=== PATIENT | male | born 1950 | race Caucasian/White ===

== ENCOUNTER 2019-04-17 09:39 | Day surgery (SDC) | payer BC, MEDICARE ==
[~2019-04-17] VITALS: Ht 175.3 cm; Wt 99.8 kg
[~2019-04-17 09:39] MED LIST: ASPI-1197 PO; ATOR40TA69 PO; BUPR200T PO; LANS15CA12 PO; LISINOPRIL PO; METO50TA18 PO; SODIUM CHLORIDE 0.9% 1000ML 1,000 ML IV ONE
[2019-04-17 10:33] VITALS: BP 177/87
[2019-04-17] MEDS ORDERED: CLOP75TA32 PO (10:46)
[2019-04-17] MEDS ORDERED: LIDOCAINE HCL-MPF 2% 5ML VIAL ONE (11:39)
[2019-04-17] MEDS ORDERED: PROPOFOL 10 MG/ML 20ML VIAL IV ONE (11:39)
[2019-04-17 12:06] VITALS: BP 86/42
[2019-04-17 12:10] VITALS: BP 104/49
[2019-04-17 12:41] VITALS: BP 145/76
== END 2019-04-17 12:49 | disposition home or self-care (01) ==
LOC: ENDO 09:39 → DAH 09:39 → ENDO 12:49
PROVIDERS: ATTEND Internal Medicine Gastroenterology
DX: Z12.11 Encounter for screening for malignant neoplasm of colon (principal); D12.2 Benign neoplasm of ascending colon; D12.0 Benign neoplasm of cecum; D12.3 Benign neoplasm of transverse colon; D12.4 Benign neoplasm of descending colon; D3A.8 Other benign neuroendocrine tumors; K29.50 Unspecified chronic gastritis without bleeding; K21.9 Gastro-esophageal reflux disease without esophagitis; K44.9 Diaphragmatic hernia without obstruction or gangrene; K64.1 Second degree hemorrhoids; K57.30 Diverticulosis of large intestine without perforation or abscess without bleeding; E66.9 Obesity, unspecified; E78.5 Hyperlipidemia, unspecified; I10 Essential (primary) hypertension; I73.9 Peripheral vascular disease, unspecified; I25.10 Atherosclerotic heart disease of native coronary artery without angina pectoris; Z68.32 Body mass index [BMI] 32.0-32.9, adult; Z96.642 Presence of left artificial hip joint; Z86.010 Personal history of colon polyps; Z79.899 Other long term (current) drug therapy; Z98.890 Other specified postprocedural states; Z72.89 Other problems related to lifestyle; Z87.891 Personal history of nicotine dependence; Z79.82 Long term (current) use of aspirin; Z82.49 Family history of ischemic heart disease and other diseases of the circulatory system
CPT/HCPCS: 43239; 45380; 45385; 88305; A4215; A4221; A4222; A4223; A4606; A4615; A4663; J2704; J3490; J7030

== ENCOUNTER → 2019-07-11 | Outpatient (CLI) | payer OTHER, MEDICARE ==
[~2019-07-11] MED LIST changes: +CLOP75TA32 PO; -SODIUM CHLORIDE 0.9% 1000ML 1,000 ML IV ONE
== END | disposition home or self-care (01) ==
LOC: SHCH 07:39
PROVIDERS: ATTEND Internal Medicine Cardiovascular Disease
DX: I70.203 Unspecified atherosclerosis of native arteries of extremities, bilateral legs (principal); I70.0 Atherosclerosis of aorta; I70.8 Atherosclerosis of other arteries
CPT/HCPCS: 93925; 93978

== ENCOUNTER 2020-12-19 07:38 | Day surgery (SDC) | payer OTHER, MEDICARE ==
[2020-12-16 12:04] LABS: BASOPHILS % (AUTO) 0.9 % (0.0-5.0); EOSINOPHILS % (AUTO) 4.4 % (0.0-8.0); HEMATOCRIT 41.1 % (42-54); LYMPHOCYTES % (AUTO) 22.1 % (21.0-51.0); MEAN CORPUSCULAR HEMOGLOBIN 29.8 pg (27.0-33.0); MEAN CORPUSCULAR HGB CONC 33.3 g/dL (32.0-36.0); MEAN CORPUSCULAR VOLUME 89.3 fL (79-99); MONOCYTES % (AUTO) 8.5 % (3.0-13.0); NEUTROPHILS % (AUTO) 63.7 % (40.0-77.0); PLATELET COUNT (AUTO) 236 K/uL (130-400); RED CELL DISTRIBUTION WIDTH 13.5 % (11.0-15.5); WHITE BLOOD COUNT (AUTO) 11.2 K/uL (4.8-10.8)
[2020-12-16 12:14] LABS: APPEARANCE,URINE Clear (CLEAR); BILIRUBIN,URINE Negative (NEGATIVE); COLOR,URINE Dark Yellow (YELLOW); GLUCOSE, URINE (UA) Negative (NEGATIVE); KETONES,URINE Negative (NEGATIVE); LEUKOCYTE ESTERASE ,URINE Negative (NEGATIVE); NITRATE,URINE Negative (NEGATIVE); OCCULT BLOOD,URINE Negative (NEGATIVE); PROTEIN,URINE Negative (NEGATIVE)
[2020-12-16 12:15] LABS: CREATININE 1.1 mg/dL (0.5-1.5)
[2020-12-16 12:18] LABS: INR 1.02 (0.85-1.15); PROTHROMBIN TIME 11.1 SEC (9.6-11.6)
[2020-12-16 12:19] LABS: PARTIAL THROMBOPLASTIN TIME 25.2 SEC (26.3-35.5)
[2020-12-16 12:47] LABS: BACTERIA,URINE Rare /HPF (None Seen); MUCUS,URINE Many LPF (None Seen); RBC,URINE 0-1 /HPF (0-1); SQUAMOUS EPITHELIAL CELL,UR Few /HPF (0-2); WBC,URINE 0-1 /HPF (0-1)
[2020-12-18 13:42] VITALS: BP 177/86
[2020-12-19] VITALS (10 sets, daily range): BP systolic 129–161; BP diastolic 68–91
[~2020-12-19] VITALS: Ht 175.3 cm; Wt 90.1 kg
[~2020-12-19 07:38] MED LIST changes: +BUPR-317 PO; -BUPR200T PO; +FEXO180T94 PO; +IBUP200C5 PO; +LISI40TA9 PO; -LISINOPRIL PO; +METO-391 PO; -METO50TA18 PO
[2020-12-19] MEDS ORDERED: NACL 0.9% 1000ML 1,000 ML IV SCH ×2 (08:00→13:15)
[2020-12-19] MEDS ORDERED: ACET1TAB25 PO (08:38)
[2020-12-19] MEDS ORDERED: HEPARIN 10,000 UNIT/10ML (1,000 UNIT/ML) VIAL ONE (10:52)
[2020-12-19] MEDS ORDERED: IODIXANOL 320 MG/ML 100 ML VIAL ONE (10:53)
[2020-12-19] MEDS ORDERED: LIDOCAINE HCL 400MG/20ML VIAL ONE (10:53)
[2020-12-19] MEDS ORDERED: MIDAZOLAM HCL 1 MG/ML 2ML VIAL ONE ×2 (10:53→12:28)
[2020-12-19] MEDS ORDERED: FENTANYL CITRATE PF 50 MCG/1 ML 2ML VIAL ONE (10:53)
[2020-12-19] MEDS ORDERED: NITROGLYCERIN 2 MG VIAL IV ONE (10:53)
[2020-12-19] MEDS ORDERED: PROTAMINE SULFATE 10 MG/ML 25ML VIAL IV ONE (13:08)
[2020-12-19] MEDS ORDERED: DEXTROSE 50%-WATER 50 ML DISP.SYRIN IV PRN (13:15)
[2020-12-19] MEDS ORDERED: NITROGLYCERIN 0.4 MG SL TAB SL PRN (13:15)
[2020-12-19] MEDS ORDERED: METOPROLOL TARTRATE 1 MG/ML 5ML VIAL IV PRN (13:15)
[2020-12-19] MEDS ORDERED: GLUCAGON 1MG KIT 1 MG ML IM PRN (13:15)
== END 2020-12-19 18:05 | disposition home or self-care (01) ==
LOC: DAH 07:38
PROVIDERS: ATTEND Internal Medicine Cardiovascular Disease
DX: I70.213 Atherosclerosis of native arteries of extremities with intermittent claudication, bilateral legs (principal); I71.4 Abdominal aortic aneurysm, without rupture; I44.0 Atrioventricular block, first degree; I10 Essential (primary) hypertension; E66.9 Obesity, unspecified; E78.5 Hyperlipidemia, unspecified; I25.10 Atherosclerotic heart disease of native coronary artery without angina pectoris; Z95.1 Presence of aortocoronary bypass graft; Z79.82 Long term (current) use of aspirin; Z85.46 Personal history of malignant neoplasm of prostate; Z92.3 Personal history of irradiation; Z95.5 Presence of coronary angioplasty implant and graft; Z72.89 Other problems related to lifestyle; Z79.02 Long term (current) use of antithrombotics/antiplatelets; Z68.30 Body mass index [BMI] 30.0-30.9, adult; Z79.01 Long term (current) use of anticoagulants; Z79.1 Long term (current) use of non-steroidal anti-inflammatories (NSAID)
CPT/HCPCS: 36415; 37224; 75630; 75774; 80048; 81001; 85025; 85610; 85730; 93005; A4215; A4216; A4221; A4222; A4223 ×3; A4606; A4663; C1769; C1887; C1893; C1894 ×2; C2623; J1644 ×2; J2250 ×2; J2720; J3010; J3490 ×2; J7030; Q9967; 96360; 96361; 99156; 99157

== ENCOUNTER → 2021-01-08 | Outpatient (CLI) | payer OTHER, MEDICARE ==
[~2021-01-08] MED LIST changes: +ACET1TAB25 PO; +IOHEXOL 350 MG/ML 100ML INFUS..BTL IV ONE; -LANS15CA12 PO; +LANS15CA13 PO
== END | disposition home or self-care (01) ==
LOC: RAH 10:05
PROVIDERS: ATTEND Internal Medicine Critical Care Medicine
DX: I71.4 Abdominal aortic aneurysm, without rupture (principal); I70.0 Atherosclerosis of aorta; I70.8 Atherosclerosis of other arteries
CPT/HCPCS: 74174; Q9967

== ENCOUNTER → 2021-01-27 | Outpatient (CLI) | payer OTHER, MEDICARE ==
[~2021-01-27] MED LIST changes: -IOHEXOL 350 MG/ML 100ML INFUS..BTL IV ONE; +REGADENOSON 0.4 MG/5 ML PF SYG IVP SCH
== END | disposition home or self-care (01) ==
LOC: SHCH 08:48
PROVIDERS: ATTEND Internal Medicine Cardiovascular Disease
DX: I25.10 Atherosclerotic heart disease of native coronary artery without angina pectoris (principal)
CPT/HCPCS: 78452; 93017; 96374; A9500 ×2; J2785

== ENCOUNTER 2021-04-10 13:06 | Inpatient (IN) | payer OTHER, MEDICARE ==
[~2021-04-10] VITALS: Ht 175.3 cm; Wt 88.0 kg
[~2021-04-10 13:06] MED LIST changes: -REGADENOSON 0.4 MG/5 ML PF SYG IVP SCH
[2021-04-10 13:55] LABS: BASOPHILS % (AUTO) 0.6 % (0.0-5.0); EOSINOPHILS % (AUTO) 1.6 % (0.0-8.0); LYMPHOCYTES % (AUTO) 11.9 % (21.0-51.0); MEAN CORPUSCULAR HEMOGLOBIN 30.5 pg (27.0-33.0); MEAN CORPUSCULAR HGB CONC 34.5 g/dL (32.0-36.0); MEAN CORPUSCULAR VOLUME 88.4 fL (79-99); MONOCYTES % (AUTO) 7.7 % (3.0-13.0); NEUTROPHILS % (AUTO) 77.1 % (40.0-77.0); PLATELET COUNT (AUTO) 259 K/uL (130-400); RED BLOOD CELL COUNT(AUTO) 4.75 MIL/uL (4.50-6.20); RED CELL DISTRIBUTION WIDTH 12.9 % (11.0-15.5)
[2021-04-10 14:11] LABS: CREATININE 1.7 mg/dL (0.5-1.5); POTASSIUM 5.2 mmol/L (3.5-5.1)
[2021-04-10 14:21] LABS: ALBUMIN 4.1 g/dL (3.5-5.0); BILIRUBIN,TOTAL 0.8 mg/dL (0.2-1.0); TOTAL PROTEIN, SERUM 8.1 g/dL (6.0-8.3)
[2021-04-10] MEDS ORDERED: KAYEXALATE 15GM/60ML PO ONE (14:30)
[2021-04-10] MEDS ORDERED: CEFTRIAXONE 1G VIAL IVP SCH (14:30)
[2021-04-10] MEDS ORDERED: AZITHROMYCIN 250 MG TABLET PO SCH (14:30)
[2021-04-10 14:46] LABS: APPEARANCE,URINE Clear (CLEAR); BILIRUBIN,URINE Negative (NEGATIVE); COLOR,URINE Yellow (YELLOW); GLUCOSE, URINE (UA) Negative (NEGATIVE); KETONES,URINE Negative (NEGATIVE); LEUKOCYTE ESTERASE ,URINE Negative (NEGATIVE); NITRATE,URINE Negative (NEGATIVE); OCCULT BLOOD,URINE Negative (NEGATIVE); PROTEIN,URINE Negative (NEGATIVE); UROBILINOGEN,URINE 0.2 mg/dL (0.2-1.0)
[2021-04-10] MEDS ORDERED: KAYEXALATE 15GM/60ML ONE (15:38)
[2021-04-10] MEDS ORDERED: NITROGLYCERIN 1GM OINT 1 INCH/1GM TD ONE (15:38)
[2021-04-10] MEDS: NITROGLYCERIN 1GM OINT 1 INCH/1GM TD ONE ×2 (15:39→16:02)
[2021-04-10] MEDS ORDERED: MORPHINE 4 MG SYG IV PRN (16:00)
[2021-04-10] MEDS ORDERED: ACETAMINOPHEN WITH CODEINE 1 TAB TAB PO PRN (16:00)
[2021-04-10] MEDS ORDERED: ONDANSETRON 4MG INJ IV PRN (16:00)
[2021-04-10] MEDS ORDERED: ACETAMINOPHEN 325 MG TAB PO PRN (16:00)
[2021-04-10] MEDS ORDERED: 0.9%NACL 1000ML 1,000 ML IV SCH (16:00)
[2021-04-10 16:27] LABS: AMPHET/METH SCREEN,URINE NEGATIVE (NEGATIVE); BARBITURATE SCREEN, URINE NEGATIVE (NEGATIVE); BENZODIAZEPINES SCREEN,URINE NEGATIVE (NEGATIVE); CANNABINOID SCREEN,URINE NEGATIVE (NEGATIVE); COCAINE SCREEN,URINE NEGATIVE (NEGATIVE); OPIATE SCREEN,URINE NEGATIVE (NEGATIVE); PHENCYCLIDINE SCREEN,URINE NEGATIVE (NEGATIVE)
[2021-04-10 17:01] LABS: INR 1.08 (0.85-1.15); PROTHROMBIN TIME 11.7 SEC (9.6-11.6)
[2021-04-10 19:55] VITALS: BP 153/75
[2021-04-10] MEDS ORDERED: FAMOTIDINE 20MG TAB PO SCH (21:00)
[2021-04-10] MEDS ORDERED: HEPARIN 5,000 UNIT VIAL ONE (21:08)
[2021-04-10] MEDS: HEPARIN 25,000 UNITS/250ML D5W 250 ML IV SCH (22:00)
[2021-04-11] VITALS (7 sets, daily range): BP systolic 116–136; BP diastolic 67–79
[2021-04-11 03:40] LABS: BASOPHILS % (AUTO) 0.9 % (0.0-5.0); EOSINOPHILS % (AUTO) 4.5 % (0.0-8.0); HEMATOCRIT 37.5 % (42-54); LYMPHOCYTES % (AUTO) 24.8 % (21.0-51.0); MEAN CORPUSCULAR HEMOGLOBIN 30.2 pg (27.0-33.0); MEAN CORPUSCULAR HGB CONC 34.4 g/dL (32.0-36.0); MEAN CORPUSCULAR VOLUME 87.8 fL (79-99); MONOCYTES % (AUTO) 8.9 % (3.0-13.0); NEUTROPHILS % (AUTO) 60.3 % (40.0-77.0); PLATELET COUNT (AUTO) 203 K/uL (130-400); RED BLOOD CELL COUNT(AUTO) 4.27 MIL/uL (4.50-6.20); RED CELL DISTRIBUTION WIDTH 12.8 % (11.0-15.5); WHITE BLOOD COUNT (AUTO) 13.7 K/uL (4.8-10.8)
[2021-04-11 05:17] LABS: INR 1.08 (0.85-1.15); PROTHROMBIN TIME 11.7 SEC (9.6-11.6)
[2021-04-11 05:21] LABS: PARTIAL THROMBOPLASTIN TIME 91.7 SEC (26.3-35.5)
[2021-04-11] MEDS ORDERED: ASPI-1197 PO (10:28)
[2021-04-11] MEDS ORDERED: TRAM50TA4 PO (10:28)
[2021-04-11] MEDS ORDERED: AMLO-258 PO (10:28)
[2021-04-11] MEDS ORDERED: MULT-1289 PO (10:28)
[2021-04-11] MEDS ORDERED: LANS15CA14 PO (10:32)
[2021-04-11] MEDS ORDERED: CART1TAB5 PO (10:32)
[2021-04-11] MEDS ORDERED: AZITHROMYCIN 500MG VIAL IVPB SCH (12:00)
[2021-04-11] MEDS: 0.9% NACL 250ML IVPB SCH (12:00)
[2021-04-11] MEDS ORDERED: CEFTRIAXONE 1G VIAL IV SCH (13:00)
[2021-04-11 13:06] LABS: INR 1.13 (0.85-1.15); PROTHROMBIN TIME 12.2 SEC (9.6-11.6)
[2021-04-11 13:07] LABS: PARTIAL THROMBOPLASTIN TIME 72.6 SEC (26.3-35.5)
[2021-04-11] MEDS: PANTOPRAZOLE 40 MG TAB DR PO SCH (17:39)
[2021-04-11] MEDS: HEPARIN 25,000 UNITS/250ML D5W 250 ML IV SCH (18:10)
[2021-04-11] MEDS: LISINOPRIL 10 MG TABLET PO SCH (18:10)
[2021-04-11] MEDS: ACETAMINOPHEN 325 MG TAB PO PRN (19:34)
[2021-04-11] MEDS: ATORVASTATIN 40 MG TABLET PO SCH (20:02)
[2021-04-11 23:46] LABS: APPEARANCE,URINE Clear (CLEAR); BILIRUBIN,URINE Negative (NEGATIVE); COLOR,URINE Yellow (YELLOW); GLUCOSE, URINE (UA) Negative (NEGATIVE); KETONES,URINE Negative (NEGATIVE); LEUKOCYTE ESTERASE ,URINE Negative (NEGATIVE); NITRATE,URINE Negative (NEGATIVE); OCCULT BLOOD,URINE Negative (NEGATIVE); PH,URINE 5.5 (5.0-8.0); PROTEIN,URINE Negative (NEGATIVE); UROBILINOGEN,URINE 0.2 mg/dL (0.2-1.0)
[2021-04-12 00:59] LABS: INR 1.08 (0.85-1.15); PROTHROMBIN TIME 11.7 SEC (9.6-11.6)
[2021-04-12 01:01] LABS: PARTIAL THROMBOPLASTIN TIME 56.5 SEC (26.3-35.5)
[2021-04-12] MEDS: ACETAMINOPHEN 325 MG TAB PO PRN ×2 (03:40→21:00)
[2021-04-12 04:01] VITALS: BP 102/64
[2021-04-12 05:19] LABS: HEMATOCRIT 38.4 % (42-54); MEAN CORPUSCULAR HEMOGLOBIN 31.2 pg (27.0-33.0); MEAN CORPUSCULAR HGB CONC 34.6 g/dL (32.0-36.0); MEAN CORPUSCULAR VOLUME 90.1 fL (79-99); PLATELET COUNT (AUTO) 190 K/uL (130-400); RED BLOOD CELL COUNT(AUTO) 4.26 MIL/uL (4.50-6.20); WHITE BLOOD COUNT (AUTO) 11.1 K/uL (4.8-10.8)
[2021-04-12 05:56] LABS: CREATININE 1.1 mg/dL (0.5-1.5); PHOSPHORUS 3.3 mg/dL (2.5-4.9); POTASSIUM 4.2 mmol/L (3.5-5.1); THYROID STIMULATING HORMONE 0.71 uIU/mL (0.36-3.74); URIC ACID 4.7 mg/dL (2.6-7.2)
[2021-04-12 05:58] LABS: BASOPHILS % (MANUAL) 5 % (0-2); EOSINOPHILS % (MANUAL) 4 % (1-6); LYMPHOCYTES % (MANUAL) 27 % (22-44); MAN.DIFF COMMENT-IMPRESSION MANUAL DIFFERENTIAL; MONOCYTES % (MANUAL) 6 % (2-9); PLATELET MORPHOLOGY COMMENT ADEQUATE; SEGMENTED NEUTROPHILS % 58 % (40-70)
[2021-04-12] MEDS: PANTOPRAZOLE 40 MG TAB DR PO SCH ×2 (06:30→09:03)
[2021-04-12 08:00] VITALS: BP 116/77
[2021-04-12] MEDS ORDERED: ASPIRIN 81 MG EC TAB PO SCH (09:00)
[2021-04-12] MEDS: APIXABAN 5 MG TABLET PO SCH ×2 (09:02→19:59)
[2021-04-12] MEDS: Vitamin B Complex/Vit C/Folic Acid PO SCH (09:02)
[2021-04-12] MEDS: CLOPIDOGREL 75MG TAB PO SCH (09:03)
[2021-04-12] MEDS: METOPROLOL SUCCINATE 50 MG TAB.SR.24H PO SCH (09:03)
[2021-04-12] MEDS: LISINOPRIL 10 MG TABLET PO SCH (09:03)
[2021-04-12 11:50] VITALS: BP 115/87
[2021-04-12] MEDS: 0.9% NACL 250ML IVPB SCH (12:00)
[2021-04-12 16:00] VITALS: BP 114/74
[2021-04-12] MEDS: ATORVASTATIN 40 MG TABLET PO SCH (19:59)
[2021-04-12 20:14] VITALS: BP 129/86
[2021-04-12 23:47] VITALS: BP 118/73
[2021-04-13 03:29] VITALS: BP 145/87
[2021-04-13 06:02] LABS: BASOPHILS % (AUTO) 0.8 % (0.0-5.0); EOSINOPHILS % (AUTO) 5.7 % (0.0-8.0); LYMPHOCYTES % (AUTO) 21.2 % (21.0-51.0); MEAN CORPUSCULAR HEMOGLOBIN 30.6 pg (27.0-33.0); MEAN CORPUSCULAR HGB CONC 33.5 g/dL (32.0-36.0); MEAN CORPUSCULAR VOLUME 91.3 fL (79-99); MONOCYTES % (AUTO) 10.4 % (3.0-13.0); NEUTROPHILS % (AUTO) 61.5 % (40.0-77.0); PLATELET COUNT (AUTO) 204 K/uL (130-400); RED BLOOD CELL COUNT(AUTO) 4.38 MIL/uL (4.50-6.20); RED CELL DISTRIBUTION WIDTH 13.1 % (11.0-15.5); WHITE BLOOD COUNT (AUTO) 11.1 K/uL (4.8-10.8)
[2021-04-13 06:14] LABS: INR 1.12 (0.85-1.15); PROTHROMBIN TIME 12.1 SEC (9.6-11.6)
[2021-04-13 06:15] LABS: PARTIAL THROMBOPLASTIN TIME 31.5 SEC (26.3-35.5)
[2021-04-13 06:26] LABS: CREATININE 1.2 mg/dL (0.5-1.5); POTASSIUM 4.2 mmol/L (3.5-5.1)
[2021-04-13] MEDS ORDERED: APIX5TAB PO (07:56)
[2021-04-13 08:00] VITALS: BP 128/86
[2021-04-13] MEDS: METOPROLOL SUCCINATE 50 MG TAB.SR.24H PO SCH (08:27)
[2021-04-13] MEDS: Vitamin B Complex/Vit C/Folic Acid PO SCH (08:30)
[2021-04-13] MEDS: APIXABAN 5 MG TABLET PO SCH (08:30)
[2021-04-13] MEDS: CLOPIDOGREL 75MG TAB PO SCH (08:31)
[2021-04-13] MEDS: LISINOPRIL 10 MG TABLET PO SCH (08:31)
[2021-04-13 12:00] VITALS: BP 159/92
[2021-04-13] MEDS ORDERED: AMLODIPINE 5 MG TAB PO ONE (13:00)
== END 2021-04-13 12:41 | disposition home or self-care (01) | DRG 280 ==
LOC: EDH 13:06 → EDHIP 15:38 → 4AH 20:13
PROVIDERS: ADMIT Internal Medicine; ATTEND Internal Medicine
DX: I82.401 Acute embolism and thrombosis of unspecified deep veins of right lower extremity (principal); I26.99 Other pulmonary embolism without acute cor pulmonale; I21.A1 Myocardial infarction type 2; N17.9 Acute kidney failure, unspecified; E11.22 Type 2 diabetes mellitus with diabetic chronic kidney disease; E11.51 Type 2 diabetes mellitus with diabetic peripheral angiopathy without gangrene; E78.5 Hyperlipidemia, unspecified; E78.00 Pure hypercholesterolemia, unspecified; E87.5 Hyperkalemia; I12.9 Hypertensive chronic kidney disease with stage 1 through stage 4 chronic kidney disease, or unspecified chronic kidney disease; I71.4 Abdominal aortic aneurysm, without rupture; I07.1 Rheumatic tricuspid insufficiency; I25.10 Atherosclerotic heart disease of native coronary artery without angina pectoris; I48.0 Paroxysmal atrial fibrillation; M16.11 Unilateral primary osteoarthritis, right hip; N18.9 Chronic kidney disease, unspecified; Z96.649 Presence of unspecified artificial hip joint; Z79.01 Long term (current) use of anticoagulants; Z79.02 Long term (current) use of antithrombotics/antiplatelets; Z79.899 Other long term (current) drug therapy; Z95.820 Peripheral vascular angioplasty status with implants and grafts; Z95.5 Presence of coronary angioplasty implant and graft; Z95.1 Presence of aortocoronary bypass graft; Z87.891 Personal history of nicotine dependence; Z85.46 Personal history of malignant neoplasm of prostate; Z80.3 Family history of malignant neoplasm of breast; Z82.49 Family history of ischemic heart disease and other diseases of the circulatory system; Z20.822 Contact with and (suspected) exposure to COVID-19
CPT/HCPCS: 36415; 71045; 71250; 74176; 76770; 78582; 80048; 80053; 80305; 81003; 82550; 83735; 83874; 83880; 84100; 84132; 84443; 84484; 84550; 85025; 85378; 85610; 85730; 87635; 87804; 93005; 93306; 93356; 93970; A9540; A9558; C9803; G0378; J0696; J1644; J7030

== ENCOUNTER → 2021-07-14 | Outpatient (CLI) | payer OTHER, MEDICARE ==
[~2021-07-14] MED LIST changes: -ACET1TAB25 PO; +AMLO-258 PO; +APIX5TAB PO; -ASPI-1197 PO; +CART1TAB5 PO; -FEXO180T94 PO; -IBUP200C5 PO; -LANS15CA13 PO; +LANS15CA14 PO; +MULT-1289 PO; +TRAM50TA4 PO
== END | disposition home or self-care (01) ==
LOC: RAH 12:05
PROVIDERS: ATTEND Internal Medicine Pulmonary Disease
DX: I26.99 Other pulmonary embolism without acute cor pulmonale (principal)
CPT/HCPCS: 93970

== ENCOUNTER → 2022-04-08 | Outpatient (CLI) | payer OTHER, MEDICARE | END | disposition home or self-care (01) | LOC: SHCH 14:53 | PROVIDERS: ATTEND Internal Medicine Cardiovascular Disease | DX: I73.9 Peripheral vascular disease, unspecified (principal) | CPT/HCPCS: 93925 ==

== ENCOUNTER 2022-06-11 05:32 | Day surgery (SDC) | payer OTHER, MEDICARE ==
[2022-06-09 10:50] LABS: HEMATOCRIT 31.7 % (42-54); MEAN CORPUSCULAR HEMOGLOBIN 25.2 pg (27.0-33.0); MEAN CORPUSCULAR HGB CONC 30.9 g/dL (32.0-36.0); MEAN CORPUSCULAR VOLUME 81.5 fL (79-99); PLATELET COUNT (AUTO) 222 K/uL (130-400); RED BLOOD CELL COUNT(AUTO) 3.89 MIL/uL (4.50-6.20); RED CELL DISTRIBUTION WIDTH 13.9 % (11.0-15.5); WHITE BLOOD COUNT (AUTO) 7.6 K/uL (4.8-10.8)
[2022-06-09 10:58] LABS: CREATININE 1.2 mg/dL (0.5-1.5); POTASSIUM 4.7 mmol/L (3.5-5.1)
[2022-06-09 11:00] LABS: PROTHROMBIN TIME 10.9 SEC (9.6-11.6)
[2022-06-09 11:02] LABS: PARTIAL THROMBOPLASTIN TIME 28.2 SEC (26.3-35.5)
[2022-06-09 11:22] LABS: APPEARANCE,URINE CLEAR (CLEAR); BILIRUBIN,URINE NEGATIVE (NEGATIVE); COLOR,URINE LIGHT-YELLOW (YELLOW); GLUCOSE, URINE (UA) NEGATIVE (NEGATIVE); KETONES,URINE NEGATIVE (NEGATIVE); LEUKOCYTE ESTERASE ,URINE NEGATIVE Leu/uL (NEGATIVE); NITRATE,URINE NEGATIVE (NEGATIVE); OCCULT BLOOD,URINE NEGATIVE (NEGATIVE); PROTEIN,URINE NEGATIVE (NEGATIVE); UROBILINOGEN,URINE 0.2 mg/dL (0.2-1.0)
[2022-06-09 11:50] LABS: B-TYPE NATRIURETIC PEPTIDE 155 pg/mL (0-100)
[2022-06-09 13:27] LABS: BAND NEUTROPHILS % (MANUAL) 2 % (0-2); EOSINOPHILS % (MANUAL) 2 % (1-6); LYMPHOCYTES % (MANUAL) 29 % (22-44); MONOCYTES % (MANUAL) 2 % (2-9); SEGMENTED NEUTROPHILS % 65 % (40-70)
[2022-06-09 13:28] LABS: MAN.DIFF COMMENT-IMPRESSION MANUAL DIFFERENTIAL; PLATELET MORPHOLOGY COMMENT ADEQUATE
[2022-06-10 13:14] VITALS: BP 158/75
[~2022-06-11] VITALS: Ht 175.3 cm; Wt 85.7 kg
[2022-06-11] VITALS (21 sets, daily range): BP systolic 81–161; BP diastolic 42–76
[~2022-06-11 05:32] MED LIST changes: +0.9% NACL 500ML IV.SOLN 500 ML IV SCH; -AMLO-258 PO; -CART1TAB5 PO; -CLOP75TA32 PO; +LISI20TA24 PO; -LISI40TA9 PO; -MULT-1289 PO; -TRAM50TA4 PO
[2022-06-11] MEDS ORDERED: 0.9%NACL 1000ML 1,000 ML IV ONE (06:52)
[2022-06-11] MEDS ORDERED: HEPARIN 10,000 UNIT/10ML (1,000 UNIT/ML) VIAL ONE (07:05)
[2022-06-11] MEDS ORDERED: FENTANYL CITRATE PF 50 MCG/1 ML 2ML VIAL ONE (07:06)
[2022-06-11] MEDS ORDERED: LIDOCAINE HCL 400MG/20ML VIAL ONE (07:06)
[2022-06-11] MEDS ORDERED: MIDAZOLAM HCL 1 MG/ML 2ML VIAL ONE ×2 (07:06→08:21)
[2022-06-11] MEDS ORDERED: NITROGLYCERIN 50MG VIAL ONE (07:06)
[2022-06-11] MEDS ORDERED: IODIXANOL 320 MG/ML 100 ML VIAL ONE ×2 (07:06→08:49)
[2022-06-11] MEDS ORDERED: HYDRALAZINE 20MG/ML VIAL ONE (09:20)
[2022-06-11] MEDS ORDERED: DEXTROSE 50%-WATER 50 ML DISP.SYRIN IV PRN (10:00)
[2022-06-11] MEDS ORDERED: GLUCAGON 1MG KIT 1 MG ML IM PRN (10:00)
[2022-06-11] MEDS ORDERED: 0.9%NACL 1000ML 1,000 ML IV SCH (10:00)
[2022-06-11] MEDS ORDERED: ATROPINE 1MG SYG IVP ONE (11:44)
[2022-06-11] MEDS ORDERED: ACETAMINOPHEN 325 MG TAB ONE (13:15)
[2022-06-11] MEDS ORDERED: ACETAMINOPHEN 325 MG TAB PO PRN (13:30)
== END 2022-06-11 15:10 | disposition home or self-care (01) ==
LOC: DAH 05:32
PROVIDERS: ATTEND Internal Medicine Cardiovascular Disease
DX: I70.211 Atherosclerosis of native arteries of extremities with intermittent claudication, right leg (principal); E78.5 Hyperlipidemia, unspecified; I10 Essential (primary) hypertension; Z85.46 Personal history of malignant neoplasm of prostate; Z96.641 Presence of right artificial hip joint; Z79.01 Long term (current) use of anticoagulants; Z79.899 Other long term (current) drug therapy
CPT/HCPCS: 80048; 83880; 85025; 85610; 85730; 81003; 36415 ×2; 71045; 93005; 75625; 75716; 75774; 85347; C9764; C1769 ×4; C1894 ×2; C1893; C1887; C2623; C1727; J3010; J3490 ×2; J7030; J0360; J0461; J1644 ×3; J2250 ×2; Q9967 ×2; A4215; A4222; A4221; A4663; A4216; A4606; A4223 ×3; 75630; 99156; 99157; C1724

== ENCOUNTER 2022-07-20 05:50 | Day surgery (SDC) | payer BC, MEDICARE ==
[2022-07-15 08:56] LABS: BASOPHILS % (AUTO) 1.4 % (0.0-5.0); EOSINOPHILS % (AUTO) 4.3 % (0.0-8.0); HEMATOCRIT 30.6 % (42-54); LYMPHOCYTES % (AUTO) 20.2 % (21.0-51.0); MEAN CORPUSCULAR HEMOGLOBIN 24.7 pg (27.0-33.0); MEAN CORPUSCULAR HGB CONC 30.4 g/dL (32.0-36.0); MEAN CORPUSCULAR VOLUME 81.2 fL (79-99); MONOCYTES % (AUTO) 7.4 % (3.0-13.0); NEUTROPHILS % (AUTO) 66.3 % (40.0-77.0); PLATELET COUNT (AUTO) 259 K/uL (130-400); RED BLOOD CELL COUNT(AUTO) 3.77 MIL/uL (4.50-6.20); RED CELL DISTRIBUTION WIDTH 14.4 % (11.0-15.5); WHITE BLOOD COUNT (AUTO) 7.2 K/uL (4.8-10.8)
[2022-07-15 08:57] LABS: APPEARANCE,URINE CLEAR (CLEAR); BILIRUBIN,URINE NEGATIVE (NEGATIVE); COLOR,URINE LIGHT-YELLOW (YELLOW); GLUCOSE, URINE (UA) NEGATIVE (NEGATIVE); KETONES,URINE NEGATIVE (NEGATIVE); LEUKOCYTE ESTERASE ,URINE NEGATIVE Leu/uL (NEGATIVE); NITRATE,URINE NEGATIVE (NEGATIVE); OCCULT BLOOD,URINE NEGATIVE (NEGATIVE); PH,URINE 5.5 (5.0-8.0); PROTEIN,URINE NEGATIVE (NEGATIVE); UROBILINOGEN,URINE 0.2 mg/dL (0.2-1.0)
[2022-07-15 09:05] LABS: CREATININE 1.1 mg/dL (0.5-1.5); POTASSIUM 4.4 mmol/L (3.5-5.1)
[2022-07-15 09:09] LABS: INR 1.02 (0.85-1.15); PROTHROMBIN TIME 11.1 SEC (9.6-11.6)
[2022-07-15 09:10] LABS: PARTIAL THROMBOPLASTIN TIME 30.2 SEC (26.3-35.5)
[2022-07-15 09:29] LABS: B-TYPE NATRIURETIC PEPTIDE 175 pg/mL (0-100)
[2022-07-17 11:04] VITALS: BP 161/77
[~2022-07-20] VITALS: Ht 175.3 cm; Wt 86.1 kg
[2022-07-20] VITALS (14 sets, daily range): BP systolic 81–166; BP diastolic 36–74
[2022-07-20] MEDS ORDERED: LIDOCAINE HCL 1% 20 ML VIAL ONE (07:09)
[2022-07-20] MEDS ORDERED: MIDAZOLAM HCL 1 MG/ML 2ML VIAL ONE ×3 (07:10→08:42)
[2022-07-20] MEDS ORDERED: NITROGLYCERIN 50MG VIAL ONE (07:10)
[2022-07-20] MEDS ORDERED: FENTANYL CITRATE PF 50 MCG/1 ML 2ML VIAL ONE ×2 (07:10→08:26)
[2022-07-20] MEDS ORDERED: HEPARIN 10,000 UNIT/10ML (1,000 UNIT/ML) VIAL ONE (07:10)
[2022-07-20] MEDS ORDERED: IODIXANOL 320 MG/ML 100 ML VIAL ONE (07:10)
[2022-07-20] MEDS ORDERED: ASPIRIN 325MG EC TAB PO ONE (09:10)
[2022-07-20] MEDS ORDERED: CLOPIDOGREL 300MG TAB ONE (09:10)
[2022-07-20] MEDS ORDERED: GLUCAGON 1MG KIT 1 MG ML IM PRN (09:30)
[2022-07-20] MEDS ORDERED: DEXTROSE 50%-WATER 50 ML DISP.SYRIN IV PRN (09:30)
[2022-07-20] MEDS ORDERED: 0.9%NACL 1000ML 1,000 ML IV SCH (09:30)
[2022-07-20] MEDS ORDERED: NITROGLYCERIN 0.4 MG SL TAB SL PRN (09:30)
[2022-07-20] MEDS ORDERED: METOPROLOL TARTRATE 1 MG/ML 5ML VIAL IV PRN (09:30)
[2022-07-20] MEDS ORDERED: HYDRALAZINE 20MG/ML VIAL ONE (12:13)
[2022-07-20] MEDS ORDERED: ATROPINE 1MG SYG IVP ONE (12:21)
== END 2022-07-20 15:27 | disposition home or self-care (01) ==
LOC: DAH 05:50
PROVIDERS: ATTEND Internal Medicine Cardiovascular Disease
DX: I70.212 Atherosclerosis of native arteries of extremities with intermittent claudication, left leg (principal); T82.856A Stenosis of peripheral vascular stent, initial encounter; I71.40 Abdominal aortic aneurysm, without rupture, unspecified; I70.92 Chronic total occlusion of artery of the extremities; I10 Essential (primary) hypertension; E78.5 Hyperlipidemia, unspecified; Z85.46 Personal history of malignant neoplasm of prostate; Z92.3 Personal history of irradiation; Z79.01 Long term (current) use of anticoagulants; Y83.8 Other surgical procedures as the cause of abnormal reaction of the patient, or of later complication, without mention of misadventure at the time of the procedure
CPT/HCPCS: 80048; 83880; 85025; 85610; 85730; 81003; 36415; 71045; 93005; 37225; 85347; 75710; C1894 ×2; C1769 ×5; C1893; C1724; C2623; C1887; J7040; J3010 ×2; J0360; J0461; J1644 ×2; J2250 ×3; J3490; Q9967; A4215; A4222; A4221; A4663; A4216; A4606; A4223 ×3; 96360; 96361; 99156; 99157

== ENCOUNTER → 2022-10-12 | Outpatient (CLI) | payer BC, MEDICARE ==
[~2022-10-12] MED LIST changes: -0.9% NACL 500ML IV.SOLN 500 ML IV SCH
[2022-10-12 12:36] LABS: BASOPHILS % (AUTO) 1.4 % (0.0-5.0); EOSINOPHILS % (AUTO) 6.2 % (0.0-8.0); HEMATOCRIT 36.1 % (42-54); LYMPHOCYTES % (AUTO) 23.9 % (21.0-51.0); MEAN CORPUSCULAR HEMOGLOBIN 25.3 pg (27.0-33.0); MEAN CORPUSCULAR HGB CONC 29.1 g/dL (32.0-36.0); MONOCYTES % (AUTO) 8.5 % (3.0-13.0); NEUTROPHILS % (AUTO) 59.8 % (40.0-77.0); PLATELET COUNT (AUTO) 253 K/uL (130-400); RED BLOOD CELL COUNT(AUTO) 4.15 MIL/uL (4.50-6.20); RED CELL DISTRIBUTION WIDTH 18.6 % (11.0-15.5); WHITE BLOOD COUNT (AUTO) 8.7 K/uL (4.8-10.8)
[2022-10-12 13:38] LABS: CARBON DIOXIDE 29 mmol/L (21-32); CHLORIDE 104 mmol/L (101-111); CREATININE 1.1 mg/dL (0.5-1.5); GLOMERULAR FILTR. RATE CALC 71 mL/min (>90); GLUCOSE,RANDOM 90 mg/dL (70-105); POTASSIUM 4.5 mmol/L (3.5-5.1); SODIUM SERUM 137 mmol/L (136-145); UREA NITROGEN, BLOOD 16 mg/dL (7-18)
== END | disposition home or self-care (01) ==
LOC: LAB 11:43
PROVIDERS: ATTEND Internal Medicine Gastroenterology
DX: D3A.010 Benign carcinoid tumor of the duodenum (principal); K29.40 Chronic atrophic gastritis without bleeding
CPT/HCPCS: 36415; 80048; 82607; 82746; 82941; 83497; 85025; 86255; 86340

== ENCOUNTER → 2022-10-14 | Outpatient (CLI) | payer BC, MEDICARE ==
[~2022-10-14] MED LIST changes: +IOHEXOL-350 75 ML VIAL IV ONE
== END | disposition home or self-care (01) ==
LOC: CANSCHCLI → RAH 11:04
PROVIDERS: ATTEND Internal Medicine Gastroenterology
DX: I77.810 Thoracic aortic ectasia (principal); D3A.010 Benign carcinoid tumor of the duodenum; J98.11 Atelectasis; R59.0 Localized enlarged lymph nodes; Z98.890 Other specified postprocedural states
CPT/HCPCS: 74178; Q9967

== ENCOUNTER → 2023-01-26 | Outpatient (CLI) | payer BC, MEDICARE ==
[~2023-01-26] MED LIST changes: -IOHEXOL-350 75 ML VIAL IV ONE
== END | disposition home or self-care (01) ==
LOC: SHCH 08:00
PROVIDERS: ATTEND Internal Medicine Cardiovascular Disease
DX: I73.9 Peripheral vascular disease, unspecified (principal)
CPT/HCPCS: 93925

== ENCOUNTER → 2023-02-22 | Outpatient (CLI) | payer BC, MEDICARE | END | disposition home or self-care (01) | LOC: RAH 12:03 | PROVIDERS: ATTEND Internal Medicine Critical Care Medicine | DX: J98.4 Other disorders of lung (principal) | CPT/HCPCS: 71250 ==

== ENCOUNTER → 2023-03-22 | Outpatient (CLI) | payer BC, MEDICARE ==
[2023-03-22 10:30] LABS: BASOPHILS # (AUTO) 0.09 K/uL (0.00-0.20); EOSINOPHILS % (AUTO) 4.6 % (0.0-8.0); IMMATURE GRANULOCYTE ABSOLUTE 0.02 K/uL (0-1); LYMPHOCYTES # (AUTO) 1.9 K/uL (1.0-4.8); LYMPHOCYTES % (AUTO) 22.1 % (21.0-51.0); MEAN CORPUSCULAR HEMOGLOBIN 29.4 pg (27.0-33.0); MEAN CORPUSCULAR HGB CONC 32.2 g/dL (32.0-36.0); MEAN CORPUSCULAR VOLUME 91.3 fL (79-99); MONOCYTES # (AUTO) 0.6 K/uL (0.1-1.0); MONOCYTES % (AUTO) 7.2 % (3.0-13.0); NEUTROPHILS # (AUTO) 5.6 K/uL (1.8-7.7); NEUTROPHILS % (AUTO) 64.9 % (40.0-77.0); PLATELET COUNT (AUTO) 205 K/uL (130-400); RED BLOOD CELL COUNT(AUTO) 4.49 MIL/uL (4.50-6.20); WHITE BLOOD COUNT (AUTO) 8.6 K/uL (4.8-10.8)
[2023-03-22 10:56] LABS: ALBUMIN 3.5 g/dL (3.5-5.0); BILIRUBIN,TOTAL 0.6 mg/dL (0.2-1.0); CREATININE 1.1 mg/dL (0.5-1.5); POTASSIUM 4.8 mmol/L (3.5-5.1)
== END | disposition home or self-care (01) ==
LOC: LAB 09:39
PROVIDERS: ATTEND Internal Medicine Gastroenterology
DX: D3A.010 Benign carcinoid tumor of the duodenum (principal); R93.3 Abnormal findings on diagnostic imaging of other parts of digestive tract
CPT/HCPCS: 36415; 80053; 85025

== ENCOUNTER 2024-03-28 15:01 | Emergency (ER) | payer OTHER, BC, MEDICARE ==
[~2024-03-28] VITALS: Ht 182.9 cm; Wt 90.7 kg
[~2024-03-28 15:01] MED LIST changes: -BUPR-317 PO; +BUPR-561 PO
[2024-03-28] MEDS ORDERED: KETO10TA2 PO (16:25)
[2024-03-28] MEDS ORDERED: BACL5TAB PO (16:25)
[2024-03-28] MEDS: OCTYL 2-CYANOACRYLATE 1 EACH TP ONE (16:33)
== END 2024-03-28 16:39 | disposition home or self-care (01) ==
LOC: EDH 15:01
DX: R51.9 Headache, unspecified (principal); E78.00 Pure hypercholesterolemia, unspecified; I11.9 Hypertensive heart disease without heart failure; I25.10 Atherosclerotic heart disease of native coronary artery without angina pectoris; Z79.899 Other long term (current) drug therapy; Z98.890 Other specified postprocedural states; V89.2XXA Person injured in unspecified motor-vehicle accident, traffic, initial encounter; Y93.89 Activity, other specified; Y92.488 Other paved roadways as the place of occurrence of the external cause; Y99.8 Other external cause status
CPT/HCPCS: 70450; 76775

== ENCOUNTER 2025-04-04 18:34 | Emergency (ER) | payer BC, MEDICARE ==
[~2025-04-04] VITALS: Ht 175.3 cm; Wt 99.8 kg
[~2025-04-04 18:34] MED LIST changes: +BACL5TAB PO; -BUPR-561 PO; +BUPR-721 PO; +KETO10TA2 PO
[2025-04-04 18:37] VITALS: BP 138/59; PULSE 97; RESP 18; TEMP 97.6
--- NOTE | 2025-04-04 19:09 | ERN ---
ED Note History of Present Illness Stated Complaint: RT SHOULDER PAIN Chief Complaint: Shoulder Injury/Pain Time Seen by MD: 18:37 Time Seen by Midlevel: 18:37 Dictation: The patient is a 75-year-old male with a history of hypertension, hyperlipidemia, CAD who presents to the emergency department after being sent by primary doctor for x-rays. Patient has imaging orders but the sided to come in through the ER. Patient reports right shoulder pain for a week. Denies any trauma. Reports pain is worse with movement. Allergies: Coded Allergies: No Known Allergies (Unverified Allergy, 12/06/12) Home Meds Active Scripts Ketorolac Tromethamine (Ketorolac Tromethamine) 10 Mg Tablet, 10 MG PO BID for 5 Days, #10 TAB Prov:SASCHA CURRAN MD 03/28/24 Baclofen (Baclofen) 5 Mg Tablet, 5 MG PO DAILY for 5 Days, #5 TAB Prov:SASCHA CURRAN MD 03/28/24 Reported Medications Apixaban (Eliquis) 5 Mg Tablet, 5 MG PO BID, TAB 06/10/22 Lisinopril (Lisinopril) 20 Mg Tablet, 20 MG PO HS, TAB 06/10/22 Lansoprazole (Prevacid 24Hr) 15 Mg Capsule.dr, 15 MG PO DAILY, CAP 04/11/21 Bupropion HCl (Bupropion Xl) 300 Mg Tab.er.24h, 300 MG PO DAILY, TAB 12/18/20 Metoprolol Succinate (Metoprolol Succinate) 50 Mg Tab.er.24h, 50 MG PO DAILY, TAB 12/18/20 Atorvastatin Calcium (LIPITOR) 80 Mg Tablet, 80 MG PO AM, TAB 10/29/15 Past Medical History Past Medical History: High Cholesterol, Heart Disease, Hypertension Additional Past Medical Hx: HX OF PROSTATE CA Surgical History: CABG Surgical History Other: BILAT LEG STENTS Family History: HTN Social History: Negative, Lives with family RN Note Reviewed/Agreed w/PFSH: Yes Review of System Dictation Constitutional: Negative for fever,chills, and weight loss Eyes: Negative for injury, pain,redness, and discharge ENT: Negative for injury,pain or swelling Cardiovascular: Negative for chest pain, palpitations, and edema Respiratory: Negative for shortness of breath, cough, and wheezing, Abdomen/GI: Negative for abdominal pain, nausea, vomiting, diarrhea, and constipation Back: Negative for injury and pain : Negative for injury, bleeding and discharge MS/Extremity: Positive for right shoulder pain Skin: Negative for rash, and discoloration Neuro: Negative for headache, weakness, numbness, tingling, and seizure Psych: Negative for suicide ideation, homicidal ideation, and hallucinations Initial Vital Sign VS Vital Signs Date Time Temp Pulse Resp B/P (MAP) Pulse Ox O2 Delivery O2 Flow Rate FiO2 04/04/25 18:37 97.5 97 18 138/59 99 Room Air 0 Physical Exam Dictation Vital Signs reviewed General Appearance: Alert, oriented x 3, no acute distress, well developed, nourished. Head and Face: non-traumatic. Eyes: PERRL, pink conjunctivas, eyelid no trauma, anterior chamber with arcus senilis. Ears: Pinnas intact and no signs of trauma or erythema ear canals clear and no discharge TM no erythema Nose: No discharge, no bleeding. Oropharynx: Mouth normal, tongue pink. pharynx clear,no erythema, tonsils no exudates, no abscesses noted, mucous membrane moist Neck: Supple, non-tender, no thyromegaly, no masses, no JVD, no bruits Breast:Deferred Chest:No tenderness, no crepitus, no paradoxical movement, no retractions Lungs:Clear, well-ventilated, symmetric, no rales, no wheezing, no rhonchi, no stridor, good breath sounds bilaterally Heart: Regular rate, regular rhythm, no murmur, no gallops Vascular: no peripheral edema, Abdomen: Soft, positive bowel sounds, nondistended, no guarding, nontender, no rebound, no masses no hepatomegaly, no splenomegaly, no Welsh's sign, no hernias. Rectal: Deferred Genital: Deferred Neurological: Normal speech, motor function intact, sensory function intact Musculoskeletal: Neck nontender, full range of motion, back nontender, full range of motion, Extremities: nontender, full range of motion , right shoulder tenderness, pain with movement Skin: Color pink, dry, no turgor, no rash, no lacerations, no abrasions, no contusions. Lymphatic: Deferred Results (Laboratory/Radiology) Laboratory/Radiology REASON: pain ORDERING PHYSICIAN: LILIAN MEJIA DEVELOPER PROGRAMMER PROCEDURE: SHOL 2V RT - SHOULDER COMP 2+VWS RT EXAM: CR right Shoulder, 2 View. CLINICAL HISTORY: pain COMPARISON: None provided. FINDINGS: BONES: No fracture JOINTS: Degenerative changes SOFT TISSUES: The soft tissues are unremarkable. IMPRESSION: 1. Degenerative changes 2. No fracture /[place] Labs Reviewed?: Yes ED Course ED Course Orders Procedure Category Date Status Time Shoulder Comp 2+Vws Rt RAD 04/04/25 Resulted 18:48 Cerv Spine 2-3vws RAD 04/04/25 Taken 18:48 Ketorolac PHA 04/04/25 Complete Tromethamine 15mg/Ml 19:00 Current Medications Medications (Trade) Dose Ordered Sig/Mimi Route PRN Reason Start Time Stop Time Status Last Admin Dose Admin Ketorolac Tromethamine (toRADol) 15 mg ONCE ONCE IM 04/04/25 19:00 04/04/25 19:01 DC Vital Signs Date Time Temp Pulse Resp B/P (MAP) Pulse Ox O2 Delivery O2 Flow Rate FiO2 04/04/25 18:37 97.5 97 18 138/59 99 Room Air 0 Medical Decision Making MDM The patient is a 75-year-old male with a history of hypertension, hyperlipidemia, CAD who presents to the emergency department after being sent by primary doctor for x-rays. Patient has imaging orders but the sided to come in through the ER. Patient reports right shoulder pain for a week. Denies any trauma. Reports pain is worse with movement. No Obvious fracture seen on x-ray. Patient at this time does not want to wait for official report. Patient reports he got confused and was supposed to go straight to radiology to get the x-ray since he had an order but he did not see schedule an appointment. Patient will follow up with PCP to request official report. On physical exam patient is in no acute distress, nontoxic appearance, neurovascular intact. Differential diagnosis: Shoulder dislocation, shoulder sprain, fracture Need for hospitalization: Patient does not meet criteria for hospitalization. There are no social concerns with this patient. DX & DISP Disposition: Discharge Departure Impression: Primary Impression: Right shoulder pain Condition: Stable Additional Instructions: Please follow up with the primary doctor tomorrow. She can request records to review your images FOLLOW-UP WITH PRIMARY CARE PROVIDER IN 1 TO 2 DAYS. TAKE MEDICATIONS DIRECTED HERE IN THE EMERGENCY ROOM. OKAY TO CONTINUE HOME MEDICATIONS UNLESS OTHERWISE DISCUSSED DURING YOUR VISIT IN THE EMERGENCY ROOM TODAY. RETURN TO YOUR NEAREST EMERGENCY ROOM IF SYMPTOMS WORSEN OR IF THERE IS NO IMPROVEMENT. CALL 911 IF YOU NEED IMMEDIATE ASSISTANCE. TAKE TYLENOL [id number] NEEDED AND IF NO CONTRAINDICATIONS ARE PRESENT. INCREASE ORAL HYDRATION. A WOUND CULTURE OR URINE CULTURE WAS ORDERED HERE IN THE EMERGENCY ROOM DEPARTMENT PLEASE FOLLOW-UP WITH PRIMARY CARE PROVIDER AND ADVISE THEM TO GET REPEAT PORTS FROM OUR FACILITY. IF YOU HAD ANY ARAM WRAP/SPLINTS THAT WERE APPLIED HERE, PLEASE DO NOT REMOVE THEM UNTIL YOU SEE YOUR PRIMARY CARE OR SPECIALTY. Referrals: STEPHANIE BRIGHT MD (PCP) Time of Disposition: 19:37 I have reviewed the case, and I agree with, Diagnosis and Plan LILIAN MEJIAP Apr 04, 2025 19:09
--- NOTE | 2025-04-04 19:41 | HMCIMG ---
EXAM: CR right Shoulder, 2 View. CLINICAL HISTORY: pain COMPARISON: None provided. FINDINGS: BONES: No fracture JOINTS: Degenerative changes SOFT TISSUES: The soft tissues are unremarkable. IMPRESSION: 1. Degenerative changes 2. No fracture /[place]
--- NOTE | 2025-04-04 20:19 | HMCIMG ---
EXAM: XR Cervical spine, 4 Views total. CLINICAL HISTORY: 75 year old male with pain. COMPARISON: None provided. FINDINGS: BONES: Osteopenia with [id number] changes. No acute fracture. DISCS/DEGENERATIVE CHANGES: The disc spaces are preserved. SOFT TISSUES: No prevertebral soft tissue swelling evident in the cervical spine. The visualized lungs appear clear. IMPRESSION: 1. No acute fracture. 2. Osteopenia with [id number] degenerative changes. /[place]
== END 2025-04-04 19:40 | disposition home or self-care (01) ==
LOC: EDH 18:34
DX: M25.511 Pain in right shoulder (principal); E78.00 Pure hypercholesterolemia, unspecified; I11.9 Hypertensive heart disease without heart failure; Z79.01 Long term (current) use of anticoagulants; Z79.899 Other long term (current) drug therapy; Z95.1 Presence of aortocoronary bypass graft; X58.XXXA Exposure to other specified factors, initial encounter; Y93.89 Activity, other specified; Y92.89 Other specified places as the place of occurrence of the external cause; Y99.8 Other external cause status
CPT/HCPCS: 72040; 73030; 99283; 99284

== ENCOUNTER 2025-04-25 15:52 | Emergency (ER) | payer BC, MEDICARE ==
[~2025-04-25] VITALS: Ht 170.2 cm; Wt 77.1 kg
[2025-04-25 15:54] VITALS: TEMP 98
[2025-04-25 17:15] LABS: IMMATURE GRANULOCYTE ABSOLUTE 0.06 K/uL (0-1); NUCLEATED RED BLOOD CELLS 0.0 % (0.0-0.19); PLATELET COUNT (AUTO) 190 K/uL (130-400); RED BLOOD CELL COUNT(AUTO) 3.51 MIL/uL (4.50-6.20); RED CELL DISTRIBUTION WIDTH 14.0 % (11.0-15.5); WHITE BLOOD COUNT (AUTO) 9.2 K/uL (4.8-10.8)
[2025-04-25 17:25] LABS: CREATININE 1.1 mg/dL (0.5-1.3); GLOMERULAR FILTR. RATE CALC 70.0 mL/min (>90); GLUCOSE,RANDOM 79.0 mg/dL (70-105); SODIUM SERUM 134.0 mmol/L (136-145); UREA NITROGEN, BLOOD 19.0 mg/dL (7-18)
[2025-04-25 17:50] VITALS: BP 165/75; PULSE 61; RESP 20; O2SAT 99
--- NOTE | 2025-04-25 17:51 | EKG ---
[facility] Test Date: 2025-04-25 Test Time: 17:22:18 Pat Name: ROSEMARY ESTRADA Department: ED Room: Gender: M Communication Manager: [facility] : 1950 Requested By: SARAH KHANNA Order Number: [id number] Reading MD: Ghulam Medina Measurements Intervals [place] Rate: 61 P: 75 VA: 244 QRS: 42 QRSD: 103 T: 60 QT: 420 QTc: 423 Interpretive Statements Sinus rhythm Prolonged VA interval Low voltage, extremity leads Compared to ECG 07/15/2022 08:37:30 Low QRS voltage now present Electronically Signed On 04-26-2025 16:10:38 CDT by Ghulam Medina Please click the below link to view image of tracing.
--- NOTE | 2025-04-25 18:08 | ERN ---
ED Note History of Present Illness Stated Complaint: HYPOTENSION Chief Complaint: Hypotension Time Seen by MD: 16:00 Time Seen by Midlevel: 16:04 Dictation: 75-year-old male brought in for evaluation of hypotension. Patient states he accidentally took one more pill than he should of of his Tizanidine . Pt states he takes when his chronic right shoulder pain. This time patient is feel pressure is in the 140 systolic, patient is awake alert and oriented x4. Patient states he feels normal, denies any complaints. Denies having any chest pain, chest discomfort. Allergies: Coded Allergies: No Known Allergies (Unverified Allergy, 12/06/12) Home Meds Active Scripts Ketorolac Tromethamine (Ketorolac Tromethamine) 10 Mg Tablet, 10 MG PO BID for 5 Days, #10 TAB Prov:SASCHA CURRAN MD 03/28/24 Baclofen (Baclofen) 5 Mg Tablet, 5 MG PO DAILY for 5 Days, #5 TAB Prov:SASCHA CURRAN MD 03/28/24 Reported Medications Apixaban (Eliquis) 5 Mg Tablet, 5 MG PO BID, TAB 06/10/22 Lisinopril (Lisinopril) 20 Mg Tablet, 20 MG PO HS, TAB 06/10/22 Lansoprazole (Prevacid 24Hr) 15 Mg Capsule.dr, 15 MG PO DAILY, CAP 04/11/21 Bupropion HCl (Bupropion Xl) 300 Mg Tab.er.24h, 300 MG PO DAILY, TAB 12/18/20 Metoprolol Succinate (Metoprolol Succinate) 50 Mg Tab.er.24h, 50 MG PO DAILY, TAB 12/18/20 Atorvastatin Calcium (LIPITOR) 80 Mg Tablet, 80 MG PO AM, TAB 10/29/15 Past Medical History Past Medical History: CAD, High Cholesterol, Hypertension Additional Past Medical Hx: HX OF PROSTATE CA Surgical History: CABG Surgical History Other: BILAT LEG STENTS Family History: HTN Social History: Negative, Lives with family Review of System Dictation Constitutional: Negative for fever,chills, and weight loss Eyes: Negative for injury, pain,redness, and discharge ENT: Negative for injury,pain or swelling Cardiovascular: Negative for chest pain, palpitations, and edema Respiratory: Negative for shortness of breath, cough, and wheezing, Abdomen/GI: Negative for abdominal pain, nausea, vomiting, diarrhea, and constipation Back: Negative for injury and pain : Negative for injury, bleeding and discharge MS/Extremity: Negative for injury and deformity Skin: Negative for rash, and discoloration Neuro: Negative for headache, weakness, numbness, tingling, and seizure Psych: Negative for suicide ideation, homicidal ideation, and hallucinations Review of Systems: was completed Initial Vital Sign VS Vital Signs Date Time Temp Pulse Resp B/P (MAP) Pulse Ox O2 Delivery O2 Flow Rate FiO2 04/25/25 15:54 98.1 50 16 87/52 99 Room Air 0 04/25/25 16:14 21 Physical Exam Dictation General: awake, alert, NAD Head/Face: Normocephalic, atraumatic Eyes: PERRL, EOMI, vision at baseline ENT: oral cavity clear, TMs clear, no signs of infection Neck: Trachea midline, supple, no nuchal rigidity Cardiovascular: RRR, normal S1/S2, No MRGs, no JVD Respiratory: CTAB, no respiratory distress, No rales or wheezes Abdomen: Soft, non-tender, non-distended, normal bowel sounds, no guarding or rebound. Skin: Warm, dry, normal turgor, no rash MS/Extremity: Pulses equal, no cyanosis, neurovascular intact, FROM Neuro: COAx4, GCS 15, strength 5/5, CN 2-12 intact, normal cerebellar exam, normal gait, Psych: Normal behavior, mood, and affect normal Results (Laboratory/Radiology) Laboratory/Radiology Laboratory Tests Test 04/25/25 15:39 White Blood Count 9.2 K/uL (4.8-10.8) Red Blood Count 3.51 MIL/uL (4.50-6.20) L Hemoglobin 11.1 g/dL (14.0-18.0) L Hematocrit 32.7 % (42-54) L Mean Corpuscular Volume 93.2 fL (79-99) Mean Corpuscular Hemoglobin 31.6 pg (27.0-33.0) Mean Corpuscular Hemoglobin Concent 33.9 g/dL (32.0-36.0) Red Cell Distribution Width 14.0 % (11.0-15.5) Platelet Count 190 K/uL (130-400) Mean Platelet Volume 8.9 fL (7.5-10.5) Immature Granulocyte % (Auto) 0.7 % (0-1) Neutrophils (%) (Auto) 71.3 % (40.0-77.0) Lymphocytes (%) (Auto) 17.0 % (21.0-51.0) L Monocytes (%) (Auto) 7.8 % (3.0-13.0) Eosinophils (%) (Auto) 2.7 % (0.0-8.0) Basophils (%) (Auto) 0.5 % (0.0-5.0) Neutrophils # (Auto) 6.6 K/uL (1.8-7.7) Lymphocytes # (Auto) 1.6 K/uL (1.0-4.8) Monocytes # (Auto) 0.7 K/uL (0.1-1.0) Eosinophils # (Auto) 0.25 K/uL (0.00-0.70) Basophils # (Auto) 0.05 K/uL (0.00-0.20) Absolute Immature Granulocyte (auto 0.06 K/uL (0-1) Nucleated Red Blood Cells 0.0 % (0.0-0.19) Sodium Level 134 mmol/L (136-145) L Potassium Level 4.7 mmol/L (3.5-5.1) Chloride Level 105 mmol/L (101-111) Carbon Dioxide Level 25 mmol/L (21-32) Blood Urea Nitrogen 19 mg/dL (7-18) H Creatinine 1.1 mg/dL (0.5-1.3) Glomerular Filtration Rate Calc 70 mL/min (>90) Random Glucose 79 mg/dL (70-105) Total Calcium 8.4 mg/dL (8.5-10.1) L Troponin I High Sensitivity 16 ng/L (4-75) Labs Reviewed?: Yes EKG Comment: EKGs did not 1722. Sinus rhythm at a rate of 61. Prolonged MI interval. Low voltage, extremity leads. No STEMI interpreted by ER MD ED Course ED Course Orders Procedure Category Date Status Time Cbc With Differential LAB 04/25/25 Complete 16:26 Basic Metabolic Panel LAB 04/25/25 Complete 16:26 Troponin I High LAB 04/25/25 Complete Sensitivity 16:26 12 Lead Ekg Tracing- EKG 04/25/25 Complete Technical 16:26 Acetaminophen With PHA 04/25/25 Complete Codeine (Tylenol-Code 18:00 Current Medications Medications (Trade) Dose Ordered Sig/Mimi Route PRN Reason Start Time Stop Time Status Last Admin Dose Admin Acetaminophen/ Codeine Phosphate (TYLenol-coDEINE TAB) 1 tab ONCE ONCE PO 04/25/25 18:00 04/25/25 18:01 DC 04/25/25 18:04 Vital Signs Date Time Temp Pulse Resp B/P (MAP) Pulse Ox O2 Delivery O2 Flow Rate FiO2 04/25/25 16:14 61 20 143/83 97 Room Air* 0 21 04/25/25 15:54 98.1 50 16 87/52 99 Room Air 0 Medical Decision Making MDM MDM: 75-year-old male brought in for evaluation of hypotension. Patient states he accidentally took one more pill than he should of of his Tizanidine . Pt states he takes when his chronic right shoulder pain. This time patient is feel pressure is in the 140 systolic, patient is awake alert and oriented x4. Castillo conley states he feels normal, denies any complaints. Denies having any chest pain, chest discomfort. Patient on my triage states he feels fine and wants to go home. Explained to patient that we will need to do some labs and observe his blood pressure. Patient verbalized understanding, agreed for lab work and observation. Cardiac workup is unremarkable. Blood pressure has been stable throughout the stay. Is now 171 systolic. Complaining of right shoulder pain. Patient received Tylenol No. 3 prior to discharge. Educated patient to put medications and a pillbox to help him from taking extra medication. Patient verbalized unde rstanding, answered all questions. Differential diagnosis: Dehydration, accidental medication overdose, Rationale: Tests considered and ordered secondary to shared decision making include: Previous outside records reviewed: Old ER visits. Risk of complication and/or morbidity or mortality of patient management: None Medications-Per medication reconciliation Need for hospitalization: Patient does not meet criteria for hospitalization. Need for emergency major/minor surgery: No There are no social concerns with this patient. Prescription drug management Prescriptions will include symptomatic care Patient's prior external medical records from other ER visits were reviewed by me as indicated. Prior testing and results from previous visits were reviewed. Prior tests were taken into account with medical decision making and resource utilization, independent historian/historians were used to obtain complete medical history. I independently interpreted the test that were performed, results were reviewed by me and considered findings on radiology if ordered. Medical management and examination interpretation discussions were had by me wi th other qualified healthcare professionals as indicated for the patient's care. DX & DISP Disposition: Discharge Departure Impression: Primary Impression: Accidental medication overdose Condition: Stable Additional Instructions: Putting your medications and a pillbox to avoid taking extra medication. Follow up with your primary doctor in 1-2 days. Return to the hospital if you have any worsening symptoms. Referrals: STEPHANIE BRIGHT MD (PCP) Time of Disposition: 18:13 I have reviewed the case, and I agree with, Diagnosis and Plan SARAH KHANNA [facility] Apr 25, 2025 18:08
== END 2025-04-25 18:27 | disposition home or self-care (01) ==
LOC: EDH 15:52
DX: T42.8X1A Poisoning by antiparkinsonism drugs and other central muscle-tone depressants, accidental (unintentional), initial encounter (principal); I95.2 Hypotension due to drugs; I25.10 Atherosclerotic heart disease of native coronary artery without angina pectoris; I10 Essential (primary) hypertension; E78.00 Pure hypercholesterolemia, unspecified; Z79.899 Other long term (current) drug therapy; Z79.01 Long term (current) use of anticoagulants; Z95.1 Presence of aortocoronary bypass graft; Y92.89 Other specified places as the place of occurrence of the external cause
CPT/HCPCS: 36415; 80048; 84484; 85025; 93005; 99284

== ENCOUNTER → 2025-04-27 | Outpatient (CLI) | payer BC, MEDICARE ==
--- NOTE | 2025-05-01 15:12 | HMCIMG ---
MRI SHOULDER RIGHT WITHOUT CONTRAST Clinical Details: M25.511 Pain in right shoulder Technique: Multisequence, multiplanar magnetic resonance images of the right shoulder without intravenous contrast were obtained. Series acquired include axial T1, axial STIR, coronal T2, coronal STIR, sagittal T2, and sagittal PD FS PROPELLER sequences with slice thickness of 3.0 mm. Comparison: Comparison is made with the exam dated 04/04/2025. Findings: Acromioclavicular Joint: There are degenerative osteoarthritic changes with subchondral marrow edema and associated soft tissue hypertrophy. The hypertrophic changes impinge on the myotendinous junction of the supraspinatus tendon. Rotator Cuff: Supraspinatus: Tendinosis is noted without evidence of a tear. Subscapularis: Tendinosis is present. Infraspinatus: Tendinosis is identified with intraosseous cystic changes at its humeral insertion measuring up to 0.9 cm, consistent with degenerative etiology. Glenohumeral Joint: No acute joint effusion or dislocation is observed. Labrum: The labrum is grossly preserved without displaced tear. Biceps Tendon: The long head of the biceps tendon is in situ and intact. Bone Marrow: No acute fracture or marrow infiltrative lesion is detected. Soft Tissues: No abnormal soft tissue collection or mass is identified. Tendons The supraspinatus, infraspinatus, subscapularis, teres minor, and long head of biceps brachii tendons appear unremarkable without evidence of tendon tear or tendinosis. Ligaments: The glenohumeral ligaments appear unremarkable. Joints: The glenohumeral joint is unremarkable with no effusion. There is no displaced labral tear demonstrated. The acromioclavicular joint shows no significant degenerative changes on the comparison study. The acromion has a type 2 curved undersurface. The coracoacromial ligament is normal. Bones: No acute fracture or aggressive osseous lesion is seen. Bone marrow signal intensity is normal. Muscles: Normal muscle girth and signal intensity are preserved. Miscellaneous: Physiologic joint fluid is present with no significant fluid in the subacromial/subdeltoid bursa. 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 * Tendinosis of the supraspinatus, infraspinatus, and subscapularis tendons. * A 0.9 cm intraosseous cyst at the infraspinatus humeral insertion, likely degenerative. * No full-thickness rotator cuff tear or displaced labral tear detected. * No acute fracture or marrow infiltrative lesion identified. /[place]
== END | disposition home or self-care (01) ==
LOC: RAH 12:14
PROVIDERS: ATTEND Internal Medicine Critical Care Medicine
DX: M19.011 Primary osteoarthritis, right shoulder (principal); M67.813 Other specified disorders of tendon, right shoulder; M25.511 Pain in right shoulder
CPT/HCPCS: 73221